=== PATIENT | male | born 1955 | race Caucasian/White ===

== ENCOUNTER → 2016-12-12 | Day surgery (SDC) | payer BC ==
[~2016-12-12] MED LIST: ASPIRIN E.C. 8181 MG PO; EFFIENT10 M1 PO; FLOMAX PO; GOOD NEIGHBOR150 MG PO; LIPITOR80 MG PO; LOVASTATIN10 M1 PO; METOPROLOL SUC100 M1 PO; MULTIVITAMIN1 SGL PO; NITROGLYCERIN0.4 M1 SL; OMEGA 3-6-9 11200 MG PO; VESICARE PO
== END ==
LOC: MSO 07:29
DX: Z12.11 Encounter for screening for malignant neoplasm of colon (principal); G47.33 Obstructive sleep apnea (adult) (pediatric); Z87.891 Personal history of nicotine dependence; K21.9 Gastro-esophageal reflux disease without esophagitis; I10 Essential (primary) hypertension; Z85.46 Personal history of malignant neoplasm of prostate; K57.30 Diverticulosis of large intestine without perforation or abscess without bleeding
CPT/HCPCS: 00810; J3010; J7120

== ENCOUNTER → 2017-08-24 | Outpatient (CLI) | payer OTHER ==
[2016-06-22 12:03] VITALS: BP 111/71
== END ==
LOC: LAB 11:57
DX: Z85.46 Personal history of malignant neoplasm of prostate (principal)

== ENCOUNTER → 2017-09-25 | Outpatient (CLI) | payer OTHER ==
[2016-06-22 12:03] VITALS: BP 111/71
[2017-09-25 11:32] LABS: ALBUMIN 3.8 g/dL (3.5-5.0); BUN/CREATININE RATIO 16.1 (6.0-26.0); CALCIUM 9.3 mg/dL (8.4-10.2); TOTAL BILIRUBIN 0.8 mg/dL (0.2-1.3); TOTAL PROTEIN 6.8 g/dL (6.3-8.2)
[2017-09-25 14:06] LABS: EOS # 0.1 (0.04-0.40); EOS % 2.7 % (0.0-4.0); HEMATOCRIT 44.1 % (42.0-52.0); HEMOGLOBIN 15.1 g/dL (13.5-18.0); LYMPH# 0.8 (1.50-4.00); MEAN CELL VOLUME 89 fl (78-100); MEAN CORPUSCULAR HEMOGLOBIN 31 pg (27-31); MEAN CORPUSCULAR HGB CONC 34 g/dL (33-37); MEAN PLATELET VOLUME 11.2 fl (7.4-10.4); MONO # 0.4 (0.20-0.80); NEU # 2.4 (1.40-6.50); PLATELET COUNT 172 K/mm3 (130-400); RED BLOOD COUNT 4.94 M/mm3 (4.20-5.60); WHITE BLOOD COUNT 3.8 K/mm3 (4.8-10.8)
== END ==
LOC: LAB 10:52
PROVIDERS: Family Medicine
DX: R23.3 Spontaneous ecchymoses (principal); R79.89 Other specified abnormal findings of blood chemistry; E78.00 Pure hypercholesterolemia, unspecified; I10 Essential (primary) hypertension; I25.10 Atherosclerotic heart disease of native coronary artery without angina pectoris

== ENCOUNTER → 2018-05-28 | Outpatient (CLI) | payer OTHER ==
[2016-06-22 12:03] VITALS: BP 111/71
== END ==
LOC: RAD 13:04 → LAB 13:04 → RAD 15:10
PROVIDERS: Psychiatry & Neurology Neurology
DX: R94.01 Abnormal electroencephalogram [EEG] (principal)
CPT/HCPCS: A9585

== ENCOUNTER → 2018-09-22 | Outpatient (CLI) | payer OTHER ==
[2016-06-22 12:03] VITALS: BP 111/71
[2018-09-22 08:16] LABS: EOS # 0.1 (0.04-0.40); EOS % 3.1 % (0.0-4.0); HEMATOCRIT 44.1 % (42.0-52.0); HEMOGLOBIN 15.1 g/dL (13.5-18.0); LYMPH# 0.8 (1.50-4.00); MEAN CELL VOLUME 90 fl (78-100); MEAN CORPUSCULAR HEMOGLOBIN 31 pg (27-31); MEAN CORPUSCULAR HGB CONC 34 g/dL (33-37); MEAN PLATELET VOLUME 10.5 fl (7.4-10.4); MONO # 0.3 (0.20-0.80); PLATELET COUNT 176 K/mm3 (130-400); RED CELL DISTRIBUTION WIDTH 13.1 % (11.5-14.5); WHITE BLOOD COUNT 3.2 K/mm3 (4.8-10.8)
[2018-09-22 08:32] LABS: ALBUMIN 3.9 g/dL (3.5-5.0); CALCIUM 9.3 mg/dL (8.4-10.2); POTASSIUM 4.3 mmol/L (3.6-5.0); TOTAL BILIRUBIN 1.1 mg/dL (0.2-1.3); TOTAL PROTEIN 6.6 g/dL (6.3-8.2)
== END ==
LOC: LAB 07:56
PROVIDERS: Family Medicine
DX: I25.10 Atherosclerotic heart disease of native coronary artery without angina pectoris (principal); E78.00 Pure hypercholesterolemia, unspecified; I10 Essential (primary) hypertension; G40.209 Localization-related (focal) (partial) symptomatic epilepsy and epileptic syndromes with complex partial seizures, not intractable, without status epilepticus; Z85.46 Personal history of malignant neoplasm of prostate

== ENCOUNTER → 2018-09-26 | Outpatient (CLI) | payer OTHER ==
[2016-06-22 12:03] VITALS: BP 111/71
== END ==
LOC: RAD 09:25
DX: R15.9 Full incontinence of feces (principal)

== ENCOUNTER → 2019-01-01 | Outpatient (CLI) | payer OTHER ==
[2016-06-22 12:03] VITALS: BP 111/71
[2019-01-01 11:19] LABS: ALBUMIN 3.7 g/dL (3.5-5.0); CALCIUM 9.1 mg/dL (8.4-10.2); POTASSIUM 4.5 mmol/L (3.6-5.0); TOTAL BILIRUBIN 0.6 mg/dL (0.2-1.3); TOTAL PROTEIN 6.4 g/dL (6.3-8.2)
[2019-01-01 12:07] LABS: EOS # 0.1 (0.04-0.40); EOS % 1.7 % (0.0-4.0); HEMATOCRIT 43.8 % (42.0-52.0); HEMOGLOBIN 14.6 g/dL (13.5-18.0); MEAN CELL VOLUME 92 fl (78-100); MEAN CORPUSCULAR HEMOGLOBIN 31 pg (27-31); MEAN CORPUSCULAR HGB CONC 33 g/dL (33-37); MEAN PLATELET VOLUME 11.1 fl (7.4-10.4); MONO # 0.4 (0.20-0.80); NEU # 2.3 (1.40-6.50); PLATELET COUNT 144 K/mm3 (130-400); RED BLOOD COUNT 4.77 M/mm3 (4.20-5.60); RED CELL DISTRIBUTION WIDTH 13.1 % (11.5-14.5); WHITE BLOOD COUNT 3.5 K/mm3 (4.8-10.8)
[2019-01-01 12:32] LABS: LYMPH# 0.7 (1.50-4.00)
== END ==
LOC: LAB 10:31
PROVIDERS: Psychiatry & Neurology Neurology
DX: G40.909 Epilepsy, unspecified, not intractable, without status epilepticus (principal)

== ENCOUNTER → 2019-03-25 | Outpatient (CLI) | payer OTHER ==
[2016-06-22 12:03] VITALS: BP 111/71
[2019-03-25 22:30] LABS: TESTOSTERONE 695 ng/dL (221-716)
== END ==
LOC: LAB 03-23 07:39
PROVIDERS: Urology
DX: Z85.46 Personal history of malignant neoplasm of prostate (principal)

== ENCOUNTER → 2019-03-27 | Outpatient (CLI) | payer OTHER ==
[2016-06-22 12:03] VITALS: BP 111/71
[2019-03-27 17:11] LABS: EOS # 0.1 (0.04-0.40); EOS % 2.4 % (0.0-4.0); HEMATOCRIT 43.6 % (42.0-52.0); HEMOGLOBIN 14.7 g/dL (13.5-18.0); LYMPH# 1.1 (1.50-4.00); MEAN CELL VOLUME 91 fl (78-100); MEAN CORPUSCULAR HEMOGLOBIN 31 pg (27-31); MEAN CORPUSCULAR HGB CONC 34 g/dL (33-37); MEAN PLATELET VOLUME 11.7 fl (7.4-10.4); MONO # 0.4 (0.20-0.80); PLATELET COUNT 151 K/mm3 (130-400); RED BLOOD COUNT 4.79 M/mm3 (4.20-5.60); RED CELL DISTRIBUTION WIDTH 13.4 % (11.5-14.5); WHITE BLOOD COUNT 3.7 K/mm3 (4.8-10.8)
== END ==
LOC: LAB 15:38
PROVIDERS: Psychiatry & Neurology Neurology
DX: G40.909 Epilepsy, unspecified, not intractable, without status epilepticus (principal)

== ENCOUNTER → 2019-10-04 | Outpatient (CLI) | payer OTHER ==
[2016-06-22 12:03] VITALS: BP 111/71
[2019-10-04 07:27] LABS: ALBUMIN 3.5 g/dL (3.4-4.8)
[2019-10-04 07:28] LABS: CALCIUM 9.1 mg/dL (8.3-10.5)
[2019-10-04 07:29] LABS: TOTAL PROTEIN 5.8 g/dL (6.2-8.1)
== END ==
LOC: LAB 07:03
PROVIDERS: Urology
DX: C61 Malignant neoplasm of prostate (principal); I25.10 Atherosclerotic heart disease of native coronary artery without angina pectoris; E78.00 Pure hypercholesterolemia, unspecified; I10 Essential (primary) hypertension

== ENCOUNTER → 2019-11-21 | Outpatient (CLI) | payer OTHER ==
[2016-06-22 12:03] VITALS: BP 111/71
[2019-11-21 17:57] LABS: POTASSIUM 4.4 mmol/L (3.5-5.1)
[2019-11-21 17:58] LABS: CALCIUM 9.1 mg/dL (8.3-10.5)
== END ==
LOC: LAB 17:38
PROVIDERS: Family Medicine
DX: I25.10 Atherosclerotic heart disease of native coronary artery without angina pectoris (principal); R60.9 Edema, unspecified

== ENCOUNTER → 2019-11-29 | Outpatient (CLI) | payer OTHER ==
[2016-06-22 12:03] VITALS: BP 111/71
[2019-11-29 11:50] LABS: EOS % 0.8 % (0.0-4.0); HEMATOCRIT 45.7 % (42.0-52.0); HEMOGLOBIN 15.3 g/dL (13.5-18.0); LYMPH# 0.9 (1.50-4.00); MEAN CELL VOLUME 92 fl (78-100); MEAN CORPUSCULAR HEMOGLOBIN 31 pg (27-31); MEAN CORPUSCULAR HGB CONC 34 g/dL (33-37); MEAN PLATELET VOLUME 10.3 fl (7.4-10.4); MONO # 0.3 (0.20-0.80); NEU # 2.3 (1.40-6.50); PLATELET COUNT 155 K/mm3 (130-400); RED BLOOD COUNT 4.98 M/mm3 (4.20-5.60); RED CELL DISTRIBUTION WIDTH 13.3 % (11.5-14.5); WHITE BLOOD COUNT 3.6 K/mm3 (4.8-10.8)
[2019-11-29 12:01] LABS: ALBUMIN 3.9 g/dL (3.4-4.8)
[2019-11-29 12:02] LABS: POTASSIUM 4.1 mmol/L (3.5-5.1)
[2019-11-29 12:03] LABS: CALCIUM 9.3 mg/dL (8.3-10.5)
[2019-11-29 12:04] LABS: TOTAL PROTEIN 6.4 g/dL (6.2-8.1)
[2019-11-29 12:06] LABS: TOTAL BILIRUBIN 0.5 mg/dL (0.2-1.2)
== END ==
LOC: LAB 11:31
PROVIDERS: Family Medicine
DX: G40.909 Epilepsy, unspecified, not intractable, without status epilepticus (principal)

== ENCOUNTER → 2020-04-13 | Outpatient (CLI) | payer OTHER ==
[2016-06-22 12:03] VITALS: BP 111/71
== END ==
LOC: LAB 10:58
DX: C61 Malignant neoplasm of prostate (principal)

== ENCOUNTER 2020-07-07 17:18 | Emergency (ER) | payer OTHER ==
[~2020-07-07 17:18] MED LIST changes: +CENTRUM SILVER1 EACH PO; -FLOMAX PO; +FLOMAX0.4 MG PO; +LIPITOR 80MG80 MG PO; -LIPITOR80 MG PO; -METOPROLOL SUC100 M1 PO; +METOPROLOL SUCC50 M1 PO; -MULTIVITAMIN1 SGL PO
[2020-07-07] MEDS ORDERED: MIRAPEX0.25 M1 PO (18:08)
[2020-07-07] MEDS ORDERED: MIRAPEX1 MG PO (18:08)
[2020-07-07] MEDS ORDERED: CLONAZEPAM2 MG PO (18:09)
[2020-07-07] MEDS ORDERED: COLACE100 M1 PO (18:09)
[2020-07-07] MEDS ORDERED: DIVALPROEX SOD500 M2 PO (18:10)
[2020-07-07] MEDS ORDERED: AMOXIL500 M1 PO (18:11)
[2020-07-07] MEDS ORDERED: AMLODIPINE BES2.5 MG PO (18:11)
[2020-07-07] MEDS ORDERED: NUPLAZID34 MG PO (18:11)
[2020-07-07] MEDS ORDERED: FUROSEMIDE20 MG PO (18:12)
[2020-07-07] MEDS ORDERED: GOOD NEIGHBOR P10 M3 (18:13)
[2020-07-07 18:14] LABS: HEMATOCRIT 38.7 % (42.0-52.0); MEAN CELL VOLUME 92 fl (78-100); MEAN CORPUSCULAR HEMOGLOBIN 31 pg (27-31); MEAN CORPUSCULAR HGB CONC 34 g/dL (33-37); MEAN PLATELET VOLUME 10.7 fl (7.4-10.4); PLATELET COUNT 126 K/mm3 (130-400); RED BLOOD COUNT 4.22 M/mm3 (4.20-5.60); RED CELL DISTRIBUTION WIDTH 13.7 % (11.5-14.5); WHITE BLOOD COUNT 3.5 K/mm3 (4.8-10.8)
[2020-07-07 18:20] LABS: ALBUMIN 3.6 g/dL (3.4-4.8); POTASSIUM 3.9 mmol/L (3.5-5.1); SODIUM 140 mmol/L (136-145)
[2020-07-07 18:21] LABS: CALCIUM 8.3 mg/dL (8.3-10.5)
[2020-07-07 18:22] LABS: GLUCOSE 81 mg/dL (75-110); TOTAL PROTEIN 6.1 g/dL (6.2-8.1)
[2020-07-07 18:23] LABS: CARBON DIOXIDE 26 mmol/L (23-31)
[2020-07-07 18:24] LABS: TOTAL BILIRUBIN 0.5 mg/dL (0.2-1.2)
[2020-07-07 18:26] LABS: ALCOHOL IN-HOUSE < 10 mg/dL (<10); LYMPHOCYTE 29 % (20-51); MONOCYTE 19 % (3-10); NEUTROPHILS 50 % (42-75)
[2020-07-07 18:27] LABS: AST-SGOT 23 U/L (5-34)
[2020-07-07 18:29] LABS: ALT/SGPT 22 U/L (0-55); MAGNESIUM 1.86 mg/dL (1.60-2.60)
[2020-07-07 18:33] LABS: ACETAMINOPHEN < 1 ug/mL
[2020-07-07 19:21] LABS: URINE APPEARANCE CLEAR; URINE BILIRUBIN NEGATIVE (NEGATIVE); URINE BLOOD NEGATIVE (NEGATIVE); URINE COLOR YELLOW; URINE GLUCOSE NEGATIVE (NEGATIVE); URINE KETONE NEGATIVE (NEGATIVE); URINE LEUKOCYTE ESTERASE NEGATIVE (NEGATIVE); URINE NITRATE NEGATIVE (NEGATIVE); URINE PROTEIN(semi-quant) 1+ mg/dL (NEGATIVE); URINE UROBILINOGEN NORMAL (NORMAL)
[2020-07-07 19:22] LABS: URINE MUCUS PRESENT (NOT PRESENT); URINE WBC 0-1 /hpf (0-3)
[2020-07-07 21:00] VITALS: BP 144/95
[2020-07-08] MEDS ORDERED: NORCO 325 MG-51 TA1 PO ×5 (09:28→10:22)
== END 2020-07-07 21:00 | disposition home or self-care (01) ==
LOC: ED 17:18
PROVIDERS: Nurse Practitioner Family
DX: G20 Parkinson's disease (principal); F22 Delusional disorders; K21.9 Gastro-esophageal reflux disease without esophagitis; F32.9 Major depressive disorder, single episode, unspecified; E78.5 Hyperlipidemia, unspecified; I25.10 Atherosclerotic heart disease of native coronary artery without angina pectoris; I10 Essential (primary) hypertension; Z95.9 Presence of cardiac and vascular implant and graft, unspecified; Z87.891 Personal history of nicotine dependence; Z90.89 Acquired absence of other organs; Z79.82 Long term (current) use of aspirin

== ENCOUNTER → 2020-07-16 | Outpatient (CLI) | payer OTHER ==
[2020-07-07 21:00] VITALS: BP 144/95
[~2020-07-16] MED LIST changes: +AMLODIPINE BES2.5 MG PO; +AMOXIL500 M1 PO; +CLONAZEPAM2 MG PO; +COLACE100 M1 PO; +DIVALPROEX SOD500 M2 PO; +FUROSEMIDE20 MG PO; +GOOD NEIGHBOR P10 M3; +MIRAPEX0.25 M1 PO; +MIRAPEX1 MG PO; +NORCO 325 MG-51 TA1 PO; +NUPLAZID34 MG PO
[2020-07-16 11:19] LABS: POTASSIUM 4.2 mmol/L (3.5-5.1)
[2020-07-16 11:20] LABS: CALCIUM 9.1 mg/dL (8.3-10.5)
== END ==
LOC: LAB 10:56
PROVIDERS: Family Medicine
DX: G20 Parkinson's disease (principal); G47.39 Other sleep apnea; K21.9 Gastro-esophageal reflux disease without esophagitis; E78.00 Pure hypercholesterolemia, unspecified; R60.0 Localized edema

== ENCOUNTER → 2020-10-21 | Outpatient (CLI) | payer OTHER ==
[2020-10-21 11:47] LABS: ALBUMIN 3.5 g/dL (3.4-4.8); POTASSIUM 4.1 mmol/L (3.5-5.1)
[2020-10-21 11:48] LABS: CALCIUM 8.6 mg/dL (8.3-10.5)
[2020-10-21 11:49] LABS: TOTAL PROTEIN 6.1 g/dL (6.2-8.1)
[2020-10-21 11:51] LABS: TOTAL BILIRUBIN 0.7 mg/dL (0.2-1.2)
== END ==
LOC: LAB 10:27
PROVIDERS: Urology
DX: C61 Malignant neoplasm of prostate (principal); E78.2 Mixed hyperlipidemia; I10 Essential (primary) hypertension; E10.9 Type 1 diabetes mellitus without complications

== ENCOUNTER → 2020-12-10 | Outpatient (CLI) | payer OTHER ==
[2020-12-10 10:12] LABS: HEMOGLOBIN 14.3 g/dL (13.5-18.0); MEAN CELL VOLUME 91 fl (78-100); MEAN CORPUSCULAR HEMOGLOBIN 30 pg (27-31); MEAN CORPUSCULAR HGB CONC 33 g/dL (33-37); MEAN PLATELET VOLUME 9.8 fl (7.4-10.4); PLATELET COUNT 169 K/mm3 (130-400); RED BLOOD COUNT 4.75 M/mm3 (4.20-5.60); RED CELL DISTRIBUTION WIDTH 13.1 % (11.5-14.5)
[2020-12-10 11:04] LABS: BAND 2 % (0-10); NEUTROPHILS 55 % (42-75)
[2020-12-10 11:05] LABS: LYMPHOCYTE 26 % (20-51); MONOCYTE 13 % (3-10)
== END ==
LOC: LAB 10:01
PROVIDERS: Family Medicine
DX: Z19.1 Hormone sensitive malignancy status (principal)

== ENCOUNTER → 2021-01-04 | Outpatient (CLI) | payer OTHER ==
[2021-01-04 09:06] LABS: HEMATOCRIT 43.2 % (42.0-52.0); HEMOGLOBIN 14.4 g/dL (13.5-18.0); MEAN CELL VOLUME 90 fl (78-100); MEAN CORPUSCULAR HEMOGLOBIN 30 pg (27-31); MEAN CORPUSCULAR HGB CONC 33 g/dL (33-37); MEAN PLATELET VOLUME 10.7 fl (7.4-10.4); PLATELET COUNT 145 K/mm3 (130-400); RED CELL DISTRIBUTION WIDTH 13.2 % (11.5-14.5); WHITE BLOOD COUNT 3.3 K/mm3 (4.8-10.8)
[2021-01-04 09:46] LABS: LYMPHOCYTE 29 % (20-51); MONOCYTE 12 % (3-10); NEUTROPHILS 57 % (42-75)
[2021-01-04 13:04] LABS: ALBUMIN 3.6 g/dL (3.4-4.8)
[2021-01-04 13:05] LABS: POTASSIUM 3.9 mmol/L (3.5-5.1)
[2021-01-04 13:06] LABS: CALCIUM 8.6 mg/dL (8.3-10.5)
[2021-01-04 13:07] LABS: TOTAL PROTEIN 6.1 g/dL (6.2-8.1)
[2021-01-04 13:09] LABS: TOTAL BILIRUBIN 0.7 mg/dL (0.2-1.2)
== END ==
LOC: LAB 08:30
PROVIDERS: Family Medicine
DX: G40.909 Epilepsy, unspecified, not intractable, without status epilepticus (principal); G47.52 REM sleep behavior disorder; Z79.899 Other long term (current) drug therapy

== ENCOUNTER → 2021-05-05 | Outpatient (CLI) | payer OTHER | LOC: LAB 14:34 | DX: Z12.5 Encounter for screening for malignant neoplasm of prostate (principal); Z85.46 Personal history of malignant neoplasm of prostate ==

== ENCOUNTER 2021-05-18 13:04 | Outpatient (RCR) | payer OTHER | END 2021-08-16 | disposition home or self-care (01) | LOC: CARDREHAB | DX: Z48.812 Encounter for surgical aftercare following surgery on the circulatory system (principal); Z95.5 Presence of coronary angioplasty implant and graft ==

== ENCOUNTER 2021-08-20 14:26 | Outpatient (RCR) | payer OTHER | END 2021-11-18 | disposition home or self-care (01) | LOC: CARDREHAB | DX: Z48.812 Encounter for surgical aftercare following surgery on the circulatory system (principal); Z95.5 Presence of coronary angioplasty implant and graft ==

== ENCOUNTER → 2021-09-28 | Outpatient (CLI) | payer OTHER ==
[2021-09-28 09:26] LABS: URINE WBC 0 /hpf (0-3)
[2021-09-28 09:44] LABS: BASO # 0.02 K/mm3 (0.02-0.10); EOS # 0.05 K/mm3 (0.04-0.40); EOS % 1.6 % (0.0-4.0); HEMATOCRIT 39.8 % (42.0-52.0); HEMOGLOBIN 13.4 g/dL (13.5-18.0); LYMPH# 0.98 K/mm3 (1.50-4.00); MEAN CELL VOLUME 92 fl (78-100); MEAN CORPUSCULAR HEMOGLOBIN 31 pg (27-31); MEAN CORPUSCULAR HGB CONC 34 g/dL (33-37); MEAN PLATELET VOLUME 10.3 fl (7.4-10.4); MONO # 0.32 K/mm3 (0.20-0.80); NEU # 1.83 K/mm3 (1.40-6.50); PLATELET COUNT 141 K/mm3 (130-400); RED BLOOD COUNT 4.34 M/mm3 (4.20-5.60); RED CELL DISTRIBUTION WIDTH 13.2 % (11.5-14.5); WHITE BLOOD COUNT 3.2 K/mm3 (4.8-10.8)
[2021-09-28 09:50] LABS: ALBUMIN 3.4 g/dL (3.4-4.8); POTASSIUM 3.8 mmol/L (3.5-5.1)
[2021-09-28 09:54] LABS: TOTAL BILIRUBIN 0.8 mg/dL (0.2-1.2)
[2021-09-28 10:10] LABS: PH-URINE 7.5 (5.0 - 8.0); URINE APPEARANCE CLEAR; URINE BILIRUBIN NEGATIVE (NEGATIVE); URINE BLOOD NEGATIVE (NEGATIVE); URINE COLOR YELLOW; URINE GLUCOSE NEGATIVE (NEGATIVE); URINE KETONE NEGATIVE (NEGATIVE); URINE LEUKOCYTE ESTERASE NEGATIVE (NEGATIVE); URINE NITRATE NEGATIVE (NEGATIVE); URINE PROTEIN(semi-quant) NEGATIVE (NEGATIVE); URINE UROBILINOGEN NORMAL (NORMAL)
== END ==
LOC: LAB 09:21
PROVIDERS: Internal Medicine
DX: Z12.5 Encounter for screening for malignant neoplasm of prostate (principal); I10 Essential (primary) hypertension; E78.5 Hyperlipidemia, unspecified

== ENCOUNTER → 2022-01-18 | Outpatient (CLI) | payer OTHER | LOC: LAB 09:52 | DX: Z85.46 Personal history of malignant neoplasm of prostate (principal) ==

== ENCOUNTER → 2025-01-13 | Outpatient (CLI) | payer MEDICARE | LOC: RAD 07:30 | DX: R07.9 Chest pain, unspecified (principal) ==